=== PATIENT | male | born 1965 | race African-American/Black ===

== ENCOUNTER 2017-02-22 07:14 | Inpatient (IN) ==
[2017-02-22] MEDS ORDERED: ALBUTEROL 2.5 MG/3 ML NEB RESP TX PRN (09:47)
[2017-02-22] MEDS ORDERED: ACETAMINOPHEN 325 MG TABLET PO PRN (09:47)
[2017-02-22 09:50] LABS: Allen Test Positive
[2017-02-22 09:52] LABS: ABG Base Excess -2.2 MMOL/L (-2.5-2.5); ABG Oxygen Saturation 86.6 % (95-100); ABG PCO2 46.6 MM HG (35-48); ABG PO2 49.1 MM HG (80-95); ABG TCO2 25.4 MMOL/L (23-27)
[2017-02-22 09:57] LABS: Basophils % 0.2 % (0.0-0.8); Hematocrit 38.9 VOL% (42.0-52.0); Hemoglobin 12.9 GM/DL (14.0-18.0); Immature Granulocytes % 0.5 %; Immature Granulocytes Absolute 0.05 #; Lymphocytes # 0.8 10*3/uL (1.4-4.0); Lymphocytes % 7.9 % (21.2-54.2); Mean Corpuscular HGB Conc 33.2 GM/DL (32-36); Mean Corpuscular Hemoglobin 29 PG (27-34); Mean Corpuscular Volume 87.6 FL (87-102); Mean Platelet Volume 11.5 FL (9.6-12.0); Monocytes # 0.8 10*3/uL (0.11-0.8); Monocytes % 7.4 % (1.7-12.7); Neutrophils # 8.7 10*3/uL (1.4-7.4); Platelet Count 221 T/CUMM (130-400); Red Blood Count 4.44 MC/CUMM (3.8-5.5); Red Cell Distribution Width 12.3 % (9.3-17.3); White Blood Count 10.3 T/CUMM (4-12)
[2017-02-22 10:22] LABS: Lactic Acid 4.3 MMOL/L (0.4-2.0)
[2017-02-22 10:24] LABS: INR 1.3
[2017-02-22] MEDS ORDERED: SODIUM CHLORIDE 0.9% 3,350 ML IV ONE (10:25)
[2017-02-22 10:29] LABS: Albumin 3.2 G/DL (3.4-5.0); Bilirubin,Total 3.2 MG/DL (0.2-1.0); Potassium 3.8 MMOL/L (3.5-5.1); Total Protein 6.2 G/DL (6.4-8.3)
[2017-02-22 10:34] LABS: Band Neutrophils 16 % (0-10); Hypochromasia Slight; Lymphocytes 8 % (20-55); Myelocytes 2 %; Platelet Estimate Adequate; Polychromasia Slight; Segmented Neutrophils 65 % (50-85); Total Cells Counted 100
[2017-02-22] MEDS ORDERED: methylPREDNISolone SOD SUC 125 MG/2 ML VIAL IV ONE (10:39)
[2017-02-22] MEDS ORDERED: ALBUTEROL/IPRATROPIUM 3 ML NEB RESP TX PRN (10:39)
[2017-02-22 11:40] LABS: Barbiturates Screen,Urine Negative (Negative); Benzodiazepines Screen,Urine Negative (Negative); Cannabinoid Screen,Urine Negative (Negative); Opiate Screen,Urine Negative (Negative); Phencyclidine Screen,Urine Negative (Negative)
[2017-02-22] MEDS: LEVOFLOXACIN INJ 750 MG in PREMIX 1 EACH IV SCH (11:42)
[2017-02-22] MEDS ORDERED: PANTOPRAZOLE 40 MG TABLET PO SCH (12:00)
[2017-02-22] MEDS ORDERED: AMINOPHYLLINE 250 MG in SODIUM CHLORIDE 0.9% 100 ML IV ONE (12:00)
[2017-02-22] MEDS: AZTREONAM 2,000 MG in SODIUM CHLORIDE 0.9% 50 ML IV SCH ×2 (12:11→18:09)
[2017-02-22] MEDS: MONTELUKAST 10 MG TABLET PO SCH (12:11)
[2017-02-22] MEDS: ALBUTEROL/IPRATROPIUM 3 ML NEB RESP TX SCH ×2 (12:41→19:03)
[2017-02-22] MEDS: SODIUM CHLORIDE 0.9% 1,000 ML IV SCH (13:23)
[2017-02-22 13:41] LABS: ABG Base Excess -4.4 MMOL/L (-2.5-2.5); ABG HCO3 20.8 MMOL/L (20-26); ABG Oxygen Saturation 97.1 % (95-100); ABG TCO2 24.7 MMOL/L (23-27); Allen Test Positive; Pt O2 Delivery Device BIPAP
[2017-02-22 13:48] LABS: ABG PCO2 76.8 MM HG (35-48)
[2017-02-22 13:50] LABS: ABG PH 7.153 (7.35-7.45)
[2017-02-22] MEDS ORDERED: PROPOFOL 1,000 MG/100 ML BOTTLE IV ONE (14:07)
[2017-02-22] MEDS ORDERED: MIDAZOLAM 10 MG/2 ML VIAL ONE (14:10)
[2017-02-22] MEDS ORDERED: ETOMIDATE 20 MG/10 ML VIAL IV ONE (14:22)
[2017-02-22] MEDS ORDERED: MIDAZOLAM 2 MG/2 ML VIAL IV ONE (14:22)
[2017-02-22] MEDS ORDERED: SUCCINYLCHOLINE 200 MG/10 ML VIAL IV ONE (14:22)
[2017-02-22] MEDS: PROPOFOL 1,000 MG/100 ML BOTTLE IV SCH ×2 (15:33→19:45)
[2017-02-22] MEDS: VANCOMYCIN INJ 1,750 MG in SODIUM CHLORIDE 0.9% 500 ML IV SCH (15:39)
[2017-02-22 16:01] LABS: Allen Test Positive; Pt O2 Delivery Device Ventilator
[2017-02-22] MEDS: AMINOPHYLLINE 500 MG in SODIUM CHLORIDE 0.9% 480 ML IV SCH (16:17)
[2017-02-22 16:18] LABS: ABG Base Excess -5.4 MMOL/L (-2.5-2.5); ABG Oxygen Saturation 93.9 % (95-100); ABG PCO2 44.4 MM HG (35-48); ABG PH 7.292 (7.35-7.45); ABG PO2 68.1 MM HG (80-95); ABG TCO2 22.3 MMOL/L (23-27)
[2017-02-22] MEDS: methylPREDNISolone SOD SUC 40 MG/1 ML VIAL IV SCH (18:11)
[2017-02-22 19:37] LABS: Albumin 2.7 G/DL (3.4-5.0); Bilirubin,Total 1.8 MG/DL (0.2-1.0); Calcium 7.1 MG/DL (8.5-10.1); Osmolality,Calculated 283.8 MOS/KG (273-304); Potassium 4.8 MMOL/L (3.5-5.1); Total Protein 5.6 G/DL (6.4-8.3)
[2017-02-22 19:45] LABS: Lactic Acid 3.8 MMOL/L (0.4-2.0)
[2017-02-23] MEDS: ALBUTEROL/IPRATROPIUM 3 ML NEB RESP TX SCH ×4 (00:02→19:00)
[2017-02-23] MEDS: AZTREONAM 2,000 MG in SODIUM CHLORIDE 0.9% 50 ML IV SCH ×4 (00:30→18:03)
[2017-02-23] MEDS: SODIUM CHLORIDE 0.9% 1,000 ML IV SCH ×3 (01:34→16:13)
[2017-02-23] MEDS: PROPOFOL 1,000 MG/100 ML BOTTLE IV SCH ×6 (01:45→21:20)
[2017-02-23] MEDS: methylPREDNISolone SOD SUC 40 MG/1 ML VIAL IV SCH ×3 (02:45→18:03)
[2017-02-23 03:24] LABS: ABG Oxygen Saturation 99.6 % (95-100); ABG PCO2 35.8 MM HG (35-48); ABG PH 7.387 (7.35-7.45); ABG TCO2 19.2 MMOL/L (23-27); Allen Test Positive; Pt O2 Delivery Device Ventilator
[2017-02-23 05:42] LABS: Basophils # 0.1 10*3/uL (0.0-0.2); Basophils % 0.3 % (0.0-0.8); Hematocrit 34.2 VOL% (42.0-52.0); Hemoglobin 11.8 GM/DL (14.0-18.0); Immature Granulocytes % 0.9 %; Immature Granulocytes Absolute 0.18 #; Lymphocytes # 1.1 10*3/uL (1.4-4.0); Lymphocytes % 5.6 % (21.2-54.2); Mean Corpuscular HGB Conc 34.5 GM/DL (32-36); Mean Corpuscular Hemoglobin 30 PG (27-34); Mean Corpuscular Volume 86.4 FL (87-102); Monocytes # 1.1 10*3/uL (0.11-0.8); Monocytes % 5.4 % (1.7-12.7); Neutrophils # 17.3 10*3/uL (1.4-7.4); Neutrophils % 87.8 % (38.7-73.9); Platelet Count 226 T/CUMM (130-400); Red Blood Count 3.96 MC/CUMM (3.8-5.5); Red Cell Distribution Width 12.2 % (9.3-17.3); White Blood Count 19.7 T/CUMM (4-12)
[2017-02-23 06:01] LABS: Calcium 7.7 MG/DL (8.5-10.1); Osmolality,Calculated 288.4 MOS/KG (273-304); Potassium 4.3 MMOL/L (3.5-5.1)
[2017-02-23 06:04] LABS: Albumin 2.6 G/DL (3.4-5.0); Bilirubin,Total 1.1 MG/DL (0.2-1.0); Calcium 7.8 MG/DL (8.5-10.1); Osmolality,Calculated 288.4 MOS/KG (273-304); Potassium 4.3 MMOL/L (3.5-5.1); Total Protein 5.9 G/DL (6.4-8.3)
[2017-02-23 06:09] LABS: Giant Platelets Few; Hypochromasia 1+; Ovalocytes Slight; Platelet Estimate Adequate
[2017-02-23] MEDS: PANTOPRAZOLE 40 MG VIAL IV SCH (09:15)
[2017-02-23] MEDS: MONTELUKAST 10 MG TABLET PO SCH (09:15)
[2017-02-23] MEDS: VANCOMYCIN INJ 1,750 MG in SODIUM CHLORIDE 0.9% 500 ML IV SCH ×2 (09:15→20:37)
[2017-02-23] MEDS ORDERED: DEXTROSE 50% 25 GM/50 ML VIAL IV PRN (09:34)
[2017-02-23] MEDS ORDERED: GLUCAGON 1 MG VIAL IM PRN (09:34)
[2017-02-23] MEDS: LEVOFLOXACIN INJ 750 MG in PREMIX 1 EACH IV SCH (11:51)
[2017-02-23] MEDS ORDERED: FUROSEMIDE 20 MG/2 ML VIAL IV ONE (12:16)
[2017-02-23] MEDS: INSULIN REGULAR 100 UNIT/ML SUBCUT SCH ×2 (12:39→18:20)
[2017-02-23] MEDS: AMINOPHYLLINE 500 MG in SODIUM CHLORIDE 0.9% 480 ML IV SCH (15:23)
[2017-02-24] MEDS: AZTREONAM 2,000 MG in SODIUM CHLORIDE 0.9% 50 ML IV SCH ×4 (00:08→18:25)
[2017-02-24] MEDS: INSULIN REGULAR 100 UNIT/ML SUBCUT SCH ×4 (00:14→18:25)
[2017-02-24] MEDS: PROPOFOL 1,000 MG/100 ML BOTTLE IV SCH ×3 (00:41→06:46)
[2017-02-24] MEDS: ALBUTEROL/IPRATROPIUM 3 ML NEB RESP TX SCH ×4 (01:07→19:42)
[2017-02-24] MEDS: methylPREDNISolone SOD SUC 40 MG/1 ML VIAL IV SCH ×4 (03:05→18:32)
[2017-02-24] MEDS: SODIUM CHLORIDE 0.9% 1,000 ML IV SCH (03:08)
[2017-02-24 03:11] LABS: ABG Base Excess -0.1 MMOL/L (-2.5-2.5); ABG HCO3 24.3 MMOL/L (20-26); ABG Oxygen Saturation 99.2 % (95-100); ABG PCO2 32.9 MM HG (35-48); ABG PH 7.453 (7.35-7.45); ABG TCO2 19.9 MMOL/L (23-27); Allen Test Positive; Pt O2 Delivery Device Ventilator
[2017-02-24 05:12] LABS: Basophils % 0.1 % (0.0-0.8); Hemoglobin 10.5 GM/DL (14.0-18.0); Immature Granulocytes % 2.7 %; Immature Granulocytes Absolute 0.55 #; Lymphocytes # 1.3 10*3/uL (1.4-4.0); Lymphocytes % 6.4 % (21.2-54.2); Mean Corpuscular HGB Conc 33.9 GM/DL (32-36); Mean Corpuscular Hemoglobin 29 PG (27-34); Mean Corpuscular Volume 86.1 FL (87-102); Mean Platelet Volume 11.9 FL (9.6-12.0); Monocytes # 1.3 10*3/uL (0.11-0.8); Monocytes % 6.3 % (1.7-12.7); NRBC # 0.08 10*3/uL; Neutrophils # 17.3 10*3/uL (1.4-7.4); Neutrophils % 84.5 % (38.7-73.9); Platelet Count 200 T/CUMM (130-400); Red Cell Distribution Width 12.2 % (9.3-17.3); White Blood Count 20.4 T/CUMM (4-12)
[2017-02-24 05:31] LABS: Magnesium 2.5 MG/DL (1.8-2.4); Osmolality,Calculated 293.3 MOS/KG (273-304); Potassium 4.3 MMOL/L (3.5-5.1)
[2017-02-24 05:44] LABS: Band Neutrophils 1 % (0-10); Giant Platelets Few; Hypochromasia Slight; Lymphocytes 7 % (20-55); Nucleated Red Blood Cells 1 (0-5); Platelet Estimate Adequate; Segmented Neutrophils 85 % (50-85); Total Cells Counted 100
[2017-02-24 08:20] LABS: ABG HCO3 21.9 MMOL/L (20-26); ABG Oxygen Saturation 96.7 % (95-100); ABG PCO2 44.7 MM HG (35-48); ABG PH 7.323 (7.35-7.45); ABG PO2 93.6 MM HG (80-95); ABG TCO2 20.9 MMOL/L (23-27); Allen Test Positive
[2017-02-24] MEDS: PANTOPRAZOLE 40 MG VIAL IV SCH (08:55)
[2017-02-24] MEDS: VANCOMYCIN INJ 1,750 MG in SODIUM CHLORIDE 0.9% 500 ML IV SCH ×2 (08:56→21:40)
[2017-02-24 09:49] LABS: ABG Base Excess 0.1 MMOL/L (-2.5-2.5); ABG HCO3 24.4 MMOL/L (20-26); ABG Oxygen Saturation 91.7 % (95-100); ABG PCO2 41.6 MM HG (35-48); ABG PH 7.389 (7.35-7.45); ABG TCO2 22.7 MMOL/L (23-27); Allen Test Positive
[2017-02-24] MEDS: MONTELUKAST 10 MG TABLET PO SCH (10:42)
[2017-02-24] MEDS: LEVOFLOXACIN INJ 750 MG in PREMIX 1 EACH IV SCH (10:43)
[2017-02-24] MEDS: AMINOPHYLLINE 500 MG in SODIUM CHLORIDE 0.9% 480 ML IV SCH (15:31)
[2017-02-25] MEDS: AZTREONAM 2,000 MG in SODIUM CHLORIDE 0.9% 50 ML IV SCH ×4 (00:07→22:55)
[2017-02-25] MEDS: ALBUTEROL/IPRATROPIUM 3 ML NEB RESP TX SCH ×4 (00:58→19:39)
[2017-02-25] MEDS: methylPREDNISolone SOD SUC 40 MG/1 ML VIAL IV SCH ×2 (02:45→15:10)
[2017-02-25 02:50] LABS: Allen Test Positive
[2017-02-25 02:51] LABS: ABG Base Excess -0.9 MMOL/L (-2.5-2.5); ABG HCO3 23.6 MMOL/L (20-26); ABG Oxygen Saturation 96.5 % (95-100); ABG PCO2 53.1 MM HG (35-48); ABG PH 7.298 (7.35-7.45); ABG PO2 86.2 MM HG (80-95); ABG TCO2 24.2 MMOL/L (23-27)
[2017-02-25] MEDS: VANCOMYCIN INJ 1,750 MG in SODIUM CHLORIDE 0.9% 500 ML IV SCH ×2 (04:50→13:02)
[2017-02-25 05:43] LABS: Hemoglobin 11.6 GM/DL (14.0-18.0); Immature Granulocytes % 6.5 %; Immature Granulocytes Absolute 2.11 #; Lymphocytes # 2.1 10*3/uL (1.4-4.0); Lymphocytes % 6.4 % (21.2-54.2); Mean Corpuscular HGB Conc 33.1 GM/DL (32-36); Mean Corpuscular Hemoglobin 29 PG (27-34); Mean Corpuscular Volume 88.2 FL (87-102); Mean Platelet Volume 11.8 FL (9.6-12.0); Monocytes # 2.1 10*3/uL (0.11-0.8); Monocytes % 6.4 % (1.7-12.7); NRBC # 0.03 10*3/uL; Neutrophils # 26.1 10*3/uL (1.4-7.4); Neutrophils % 80.7 % (38.7-73.9); Platelet Count 239 T/CUMM (130-400); Red Blood Count 3.97 MC/CUMM (3.8-5.5); Red Cell Distribution Width 12.4 % (9.3-17.3); White Blood Count 32.4 T/CUMM (4-12)
[2017-02-25 06:18] LABS: Calcium 7.6 MG/DL (8.5-10.1); Magnesium 2.6 MG/DL (1.8-2.4); Osmolality,Calculated 289.1 MOS/KG (273-304); Potassium 4.8 MMOL/L (3.5-5.1)
[2017-02-25 06:19] LABS: Band Neutrophils 5 % (0-10); Hypochromasia 1+; Lymphocytes 3 % (20-55); Myelocytes 2 %; Platelet Estimate Adequate; Segmented Neutrophils 84 % (50-85); Target Cells Slight; Total Cells Counted 100
[2017-02-25 06:32] LABS: Osmolality,Calculated 289.1 MOS/KG (273-304); Phosphorous 3.9 MG/DL (2.5-4.9); Potassium 4.8 MMOL/L (3.5-5.1); Prealbumin 9.8 MG/DL (20-40)
[2017-02-25] MEDS: MONTELUKAST 10 MG TABLET PO SCH (09:16)
[2017-02-25] MEDS: PANTOPRAZOLE 40 MG VIAL IV SCH (09:19)
[2017-02-25] MEDS ORDERED: methylPREDNISolone SOD SUC 40 MG/1 ML VIAL IV SCH (09:30)
[2017-02-25] MEDS: LEVOFLOXACIN INJ 750 MG in PREMIX 1 EACH IV SCH (11:08)
[2017-02-25] MEDS: THEOPHYLLINE ER (24 HR) 400 MG CAPSULE PO SCH (11:50)
[2017-02-25] MEDS: MUPIROCIN 2% OINT 22 GM TUBE TOP SCH ×2 (11:50→22:56)
[2017-02-25] MEDS: AMINOPHYLLINE 500 MG in SODIUM CHLORIDE 0.9% 480 ML IV SCH (15:12)
[2017-02-26] MEDS: ALBUTEROL/IPRATROPIUM 3 ML NEB RESP TX SCH ×4 (00:59→19:13)
[2017-02-26] MEDS: methylPREDNISolone SOD SUC 40 MG/1 ML VIAL IV SCH ×2 (01:32→18:00)
[2017-02-26] MEDS: AZTREONAM 2,000 MG in SODIUM CHLORIDE 0.9% 50 ML IV SCH ×3 (04:00→18:01)
[2017-02-26 04:29] LABS: ABG HCO3 26.1 MMOL/L (20-26); ABG Oxygen Saturation 96.6 % (95-100); ABG PCO2 60.1 MM HG (35-48); ABG PH 7.256 (7.35-7.45); ABG PO2 90.3 MM HG (80-95); Allen Test Positive; Pt O2 Delivery Device CPAP
[2017-02-26] MEDS: VANCOMYCIN INJ 1,750 MG in SODIUM CHLORIDE 0.9% 500 ML IV SCH ×2 (05:12→18:39)
[2017-02-26 07:02] LABS: Basophils % 0.1 % (0.0-0.8); Hematocrit 42.5 VOL% (42.0-52.0); Hemoglobin 13.5 GM/DL (14.0-18.0); Immature Granulocytes Absolute 7.55 #; Lymphocytes # 2.8 10*3/uL (1.4-4.0); Mean Corpuscular HGB Conc 31.8 GM/DL (32-36); Mean Corpuscular Hemoglobin 29 PG (27-34); Mean Corpuscular Volume 89.9 FL (87-102); Mean Platelet Volume 11.7 FL (9.6-12.0); Monocytes # 2.3 10*3/uL (0.11-0.8); Monocytes % 5.8 % (1.7-12.7); NRBC # 0.21 10*3/uL; Neutrophils # 27.1 10*3/uL (1.4-7.4); Neutrophils % 68.1 % (38.7-73.9); Platelet Count 279 T/CUMM (130-400); Red Blood Count 4.73 MC/CUMM (3.8-5.5); Red Cell Distribution Width 12.4 % (9.3-17.3); White Blood Count 39.8 T/CUMM (4-12)
[2017-02-26 07:39] LABS: Band Neutrophils 6 % (0-10); Lymphocytes 8 % (20-55); Nucleated Red Blood Cells 2 (0-5); Segmented Neutrophils 80 % (50-85); Total Cells Counted 100
[2017-02-26 07:40] LABS: Giant Platelets Few; Hypochromasia 1+; Ovalocytes Slight; Platelet Estimate Adequate
[2017-02-26 07:49] LABS: Albumin 2.8 G/DL (3.4-5.0); Bilirubin,Total 0.4 MG/DL (0.2-1.0); Calcium 8.6 MG/DL (8.5-10.1); Osmolality,Calculated 284.4 MOS/KG (273-304); Potassium 4.9 MMOL/L (3.5-5.1); Total Protein 6.7 G/DL (6.4-8.3)
[2017-02-26] MEDS: THEOPHYLLINE ER (24 HR) 400 MG CAPSULE PO SCH (09:24)
[2017-02-26] MEDS: PANTOPRAZOLE 40 MG TABLET PO SCH (09:25)
[2017-02-26] MEDS: MUPIROCIN 2% OINT 22 GM TUBE TOP SCH ×2 (09:25→21:45)
[2017-02-26] MEDS: MONTELUKAST 10 MG TABLET PO SCH (09:25)
[2017-02-26] MEDS: LEVOFLOXACIN INJ 750 MG in PREMIX 1 EACH IV SCH (11:12)
[2017-02-26] MEDS ORDERED: FUROSEMIDE 20 MG/2 ML VIAL IV ONE (11:19)
[2017-02-26] MEDS: ALBUMIN 25% 25 GM in PREMIX 1 EACH IV SCH (16:55)
[2017-02-27] MEDS: ALBUTEROL/IPRATROPIUM 3 ML NEB RESP TX SCH ×4 (00:28→19:56)
[2017-02-27] MEDS: AZTREONAM 2,000 MG in SODIUM CHLORIDE 0.9% 50 ML IV SCH ×5 (01:08→22:17)
[2017-02-27] MEDS: methylPREDNISolone SOD SUC 40 MG/1 ML VIAL IV SCH ×2 (03:51→15:56)
[2017-02-27] MEDS: ALBUMIN 25% 25 GM in PREMIX 1 EACH IV SCH ×2 (03:52→08:17)
[2017-02-27 06:13] LABS: ABG Base Excess -3.4 MMOL/L (-2.5-2.5); ABG HCO3 23.3 MMOL/L (20-26); ABG Oxygen Saturation 96.8 % (95-100); ABG PCO2 48.7 MM HG (35-48); ABG PH 7.298 (7.35-7.45); ABG PO2 88.2 MM HG (80-95); ABG TCO2 24.8 MMOL/L (23-27); Allen Test Positive
[2017-02-27 07:39] LABS: Basophils % 0.1 % (0.0-0.8); Hematocrit 42.5 VOL% (42.0-52.0); Hemoglobin 13.6 GM/DL (14.0-18.0); Immature Granulocytes % 26.5 %; Immature Granulocytes Absolute 8.17 #; Lymphocytes % 6.5 % (21.2-54.2); Mean Corpuscular Hemoglobin 29 PG (27-34); Mean Corpuscular Volume 89.3 FL (87-102); Mean Platelet Volume 11.2 FL (9.6-12.0); Monocytes % 6.4 % (1.7-12.7); NRBC # 0.08 10*3/uL; Neutrophils # 18.6 10*3/uL (1.4-7.4); Neutrophils % 60.5 % (38.7-73.9); Platelet Count 283 T/CUMM (130-400); Red Blood Count 4.76 MC/CUMM (3.8-5.5); Red Cell Distribution Width 12.3 % (9.3-17.3); White Blood Count 30.8 T/CUMM (4-12)
[2017-02-27 07:59] LABS: Band Neutrophils 11 % (0-10); Lymphocytes 12 % (20-55); Metamyelocytes 2 %; Segmented Neutrophils 72 % (50-85); Total Cells Counted 100
[2017-02-27 08:00] LABS: Anisocytosis 1+; Polychromasia Slight
[2017-02-27 08:05] LABS: Albumin 3.5 G/DL (3.4-5.0); Bilirubin,Total 0.6 MG/DL (0.2-1.0); Calcium 8.3 MG/DL (8.5-10.1); Osmolality,Calculated 284.4 MOS/KG (273-304); Potassium 4.7 MMOL/L (3.5-5.1); Total Protein 7.2 G/DL (6.4-8.3)
[2017-02-27] MEDS: MONTELUKAST 10 MG TABLET PO SCH (08:38)
[2017-02-27] MEDS: PANTOPRAZOLE 40 MG TABLET PO SCH (08:38)
[2017-02-27] MEDS: THEOPHYLLINE ER (24 HR) 400 MG CAPSULE PO SCH (08:38)
[2017-02-27] MEDS: MUPIROCIN 2% OINT 22 GM TUBE TOP SCH ×2 (08:38→21:21)
[2017-02-27] MEDS: LEVOFLOXACIN INJ 750 MG in PREMIX 1 EACH IV SCH (09:49)
[2017-02-27] MEDS: VANCOMYCIN INJ 1,750 MG in SODIUM CHLORIDE 0.9% 500 ML IV SCH ×2 (11:20→18:26)
[2017-02-28] MEDS: ALBUTEROL/IPRATROPIUM 3 ML NEB RESP TX SCH ×4 (00:25→20:05)
[2017-02-28] MEDS: methylPREDNISolone SOD SUC 40 MG/1 ML VIAL IV SCH ×2 (03:20→13:22)
[2017-02-28] MEDS: AZTREONAM 2,000 MG in SODIUM CHLORIDE 0.9% 50 ML IV SCH ×2 (03:20→08:12)
[2017-02-28] MEDS: VANCOMYCIN INJ 1,750 MG in SODIUM CHLORIDE 0.9% 500 ML IV SCH (04:06)
[2017-02-28] MEDS: MUPIROCIN 2% OINT 22 GM TUBE TOP SCH ×2 (08:12→21:58)
[2017-02-28] MEDS: MONTELUKAST 10 MG TABLET PO SCH (08:12)
[2017-02-28] MEDS: PANTOPRAZOLE 40 MG TABLET PO SCH (08:12)
[2017-02-28] MEDS: THEOPHYLLINE ER (24 HR) 400 MG CAPSULE PO SCH (08:12)
[2017-02-28] MEDS: LEVOFLOXACIN INJ 750 MG in PREMIX 1 EACH IV SCH (09:44)
[2017-02-28] MEDS: LEVOFLOXACIN 750 MG TABLET PO SCH (12:45)
[2017-02-28] MEDS: PENICILLIN VK 500 MG TABLET PO SCH ×2 (13:22→21:12)
[2017-02-28] MEDS ORDERED: VANCOMYCIN INJ 1,750 MG in SODIUM CHLORIDE 0.9% 500 ML IV SCH (16:00)
[2017-03-01] MEDS: ALBUTEROL/IPRATROPIUM 3 ML NEB RESP TX SCH ×2 (00:19→07:18)
[2017-03-01] MEDS: methylPREDNISolone SOD SUC 40 MG/1 ML VIAL IV SCH (02:04)
[2017-03-01] MEDS: PENICILLIN VK 500 MG TABLET PO SCH ×2 (05:45→12:59)
[2017-03-01 07:31] LABS: Basophils % 0.1 % (0.0-0.8); Eosinophils # 0.1 10*3/uL (0.0-0.87); Eosinophils % 0.2 % (0.00-10.9); Hematocrit 38.1 VOL% (42.0-52.0); Hemoglobin 12.2 GM/DL (14.0-18.0); Immature Granulocytes % 28.9 %; Immature Granulocytes Absolute 7.96 #; Lymphocytes # 2.4 10*3/uL (1.4-4.0); Lymphocytes % 8.6 % (21.2-54.2); Mean Corpuscular Hemoglobin 29 PG (27-34); Mean Platelet Volume 11.8 FL (9.6-12.0); Monocytes # 1.9 10*3/uL (0.11-0.8); NRBC # 0.03 10*3/uL; Neutrophils # 15.2 10*3/uL (1.4-7.4); Neutrophils % 55.2 % (38.7-73.9); Platelet Count 262 T/CUMM (130-400); Red Blood Count 4.28 MC/CUMM (3.8-5.5); Red Cell Distribution Width 12.6 % (9.3-17.3); White Blood Count 27.6 T/CUMM (4-12)
[2017-03-01 07:57] LABS: Calcium 7.8 MG/DL (8.5-10.1); Osmolality,Calculated 283.4 MOS/KG (273-304); Potassium 4.5 MMOL/L (3.5-5.1)
[2017-03-01 08:10] LABS: Band Neutrophils 20 % (0-10); Eosinophils 1 % (0-10); Lymphocytes 9 % (20-55); Metamyelocytes 3 %; Myelocytes 2 %; Segmented Neutrophils 58 % (50-85); Total Cells Counted 100
[2017-03-01 08:11] LABS: Polychromasia Slight
[2017-03-01] MEDS: THEOPHYLLINE ER (24 HR) 400 MG CAPSULE PO SCH (08:32)
[2017-03-01] MEDS: PANTOPRAZOLE 40 MG TABLET PO SCH (08:32)
[2017-03-01] MEDS: MONTELUKAST 10 MG TABLET PO SCH (08:32)
[2017-03-01] MEDS: MUPIROCIN 2% OINT 22 GM TUBE TOP SCH (08:33)
[2017-03-01] MEDS: LEVOFLOXACIN 750 MG TABLET PO SCH (11:31)
[2017-03-01 12:11] VITALS: BP 117/81
== END 2017-03-01 13:15 | disposition home or self-care (01) | DRG 871 ==
LOC: SUATTDRO 08:40 → N.2E 08:40 → N.ICU 09:26 → N.5E 02-25 14:00
PROVIDERS: ADMIT Family Medicine; ATTEND Internal Medicine Cardiovascular Disease